=== PATIENT | female | born 1970 | race Caucasian/White ===

== ENCOUNTER 2024-03-26 16:44 | Outpatient (CLI) | payer OTHER, SELFPAY ==
--- NOTE | ~2024-03-26 | XR_ITS ---
EXAMINATION: XR chest 2V Exam Date/Time: 03/26/2024 16:52 CDT HISTORY: SOB X 2 MOS. PROGESSIVELY WORSENING Comparison: None. RESULT: Lines, tubes, and devices: None. Lungs and pleura: Clear. Cardiomediastinal silhouette: Unremarkable. Other: No acute osseous or upper abdominal finding. IMPRESSION: No acute cardiopulmonary process. Reviewed, dictated and finalized at location K.
== END 2024-03-26 16:45 | disposition home or self-care (01) ==
PROVIDERS: PCP Nurse Practitioner Adult Health; Visit Provider Nurse Practitioner Adult Health
DX: R06.02 Shortness of breath (principal)
CPT/HCPCS: 71046

== ENCOUNTER 2024-12-03 00:32 | Day surgery (SDC) | payer OTHER, SELFPAY ==
[2024-09-02 15:48] VITALS: BMI 51.2
--- NOTE | 2024-09-08 14:06 | SUR.PREOP ---
Called pt to cancel her procedure on 09/10 due to provider availability. Pt rescheduled to 12/03 at 1330.
--- NOTE | 2024-11-28 08:31 | PC.NURSE ---
several attempts made to contact pt regarding upcoming colonoscopy,voicemails left, called and spoke with pts son and he said he will contact pt and give message to call.
[2024-12-02 08:59] VITALS: BMI 48.6
--- OUTSIDE RECORDS SUMMARY | 2024-12-03 00:35 | XMS_ITS | Clinical Summary ---
Author Organization [facility] [employer] Address [address] [employer] [address] [address] Care Team Providers Care Ethylbenzene Converter Helper Name Role Phone Julieth Randall MD Primary Care Provider [phone] Allergies No known active allergies Medications cyanocobalamin (Vitamin B-12) 1,000 mcg TabletIndications :Vitamin B 12 deficiency Take 1 Tablet (1,000 mcg) by mouth daily. 1 Tablet 3 Active cholecalciferol (Vitamin D3) 25 mcg (1,000 unit) Tablet, ChewableIndicatio ns:Vitamin D deficiency Take 2 Tablets (2,000 Units) by mouth daily. 1 Tablet 3 Active oxyBUTYnin (DITROPAN XL) 10 mg Extended Release 24 hour tablet Take 1 Tablet by mouth daily. 4 Active norethindrone acetate (AYGESTIN) 5 mg Tablet Take 1 Tablet by mouth daily. 4 Active lisinopriL (PRINIVIL) 5 mg tabletIndications :Edema of both legs,Benign hypertension Take 1 Tablet (5 mg) by mouth daily. 90 Tablet 2 4 Active Active Problems Problem Noted Date Diagnosed Date LVH (left ventricular hypertrophy) 04/22/2024 Overview (04/22/2024): On Echo 04/2024. Mild TR , mild LVH Mixed hyperlipidemia 04/18/2024 Prediabetes 04/08/2024 Benign hypertension 03/19/2024 Urinary incontinence 03/19/2024 Edema of both legs 03/19/2024 Shortness of breath 03/19/2024 Vitamin D deficiency 06/15/2023 Vitamin B 12 deficiency 06/15/2023 Morbid obesity with body mass index of 40.0-49.9 06/15/2023 Resolved Problems Problem Noted Date Diagnosed Date Resolved Date Anemia 06/13/2023 06/15/2023 Encounters Date Type Department Care Team Description 11/20/2024 External Device Data [facility] ABSTRACTION Provider, Abstract 11/12/2024 External Device Data [facility] ABSTRACTION Provider, Abstract 11/12/2024 External Device Data [facility] ABSTRACTION Provider, Abstract 11/09/2024 External Device Data [facility] ABSTRACTION Provider, Abstract 11/08/2024 External Device Data [facility] ABSTRACTION Provider, Abstract 11/05/2024 External Device Data [facility] ABSTRACTION Provider, Abstract 10/22/2024 External Device Data [facility] ABSTRACTION Provider, Abstract 09/25/2024 External Device Data [facility] ABSTRACTION Provider, Abstract 09/25/2024 External Device Data [facility] ABSTRACTION Provider, Abstract 09/10/2024 External Device Data [facility] ABSTRACTION Provider, Abstract from Last 3 Months Immunizations Immunization Administration Dates Next Due (ADACEL/BOOSTRIX)(10 YR UP) TDAP VACCINE, 0.5ML, IM 06/13/2023 INFLUENZA VACCINE QUADRIVALENT 3 YR UP PF IM INFLUENZA VACCINE QUADRIVALENT 6 MOS UP PF IM INFLUENZA VACCINE TRIVALENT SPLIT VIRUS, (6 MOS UP), 0.5ML (PF), IM 06/12/2024 Family History Medical History Relation Name Comments Cancer Father Davi Wagner Very active wit h screening, skin was 1st cancer, false positive on kidney, prostate was next, rib, then leg, from infections after thigh bone replacement surgery 10/15/2018 Skin Cancer Father Davi Wagner 1st cancer on t op of head, life long smoker since 11yrs. 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 late 1970s early Depression Mother Celsa Wagner not diagnosed, commited suicide 06/28/1977 Heart Disease Paternal Grandfather Davi Wagner Not 100% positive on this, going on a comment when I was a child Depression Paternal Grandmother Estelita Wagner Not diagnosed, commited suicide at the age of 22 while 11/29/1939 Other Sister Kathy Wagner [place] Had lump in breast in 1986, was benign and appeared after massive amounts of bug spray was sprayed in her bedroom to combat ants No Known Problems Son Relation Name Status Comments Father Davi Wagner Maternal Grandfather Wei Arango Maternal Grandmother Lesly Arango Mother Celsa Wagner Paternal Grandfather Davi Wagner Paternal Grandmother Estelita Wagner Sister Kathy Wagner [place] Alive Son Alive Social History Tobacco Use Types Packs/Day Years Used Date Smoking Tobacco: Former Cigarettes 0 Tobacco Cessation:Counseling Given: Not Answered Comments:I smoked off and on for a few years until 1991 and smoked for about 6 months in 2001 Alcohol Use Standard Drinks/Week Comments Yes 0 (1 standard drink = 0.6 oz pur e alcohol) Only occasionally or rarely Comments No Sex and Gender Information Value Date Recorded Sex Assigned at Female 06/06/2023 1:11 PM CDT Legal Sex Female 10:48 AM CDT Gender Identity Female 06/06/2023 1:11 PM CDT Sexual Orientation Straight 06/06/2023 1: 11 PM CDT Last Filed Vital Signs Vital Sign Reading Time Taken Comments Blood Pressure 142/82 06/18/2024 2:36 PM CDT Pulse 90 06/18/2024 2:36 PM CDT Temperature 36.5 C (97.7 F) 06/18/2024 2:36 PM CDT Respiratory Rate 16 06/18/2024 2:36 PM CDT Oxygen Saturation 97% 06/18/2024 2:36 PM CDT Inhaled Oxygen Concentration - - Weight 148.8 kg (328 lb) 06/18/2024 2:36 PM CDT Height 170.2 cm (5' 7 ) 06/18/2024 2:36 PM CDT Body Mass Index 51.37 06/18/2024 2:36 PM CDT Plan of Treatment Upcoming Encounters Date Type Department Care Team (Late st Contact Info) Description 12/17/2024 8:30 AM CDT Office Visit [facility] [place] [address] [place] [address] Xiomara Galvan, ANP [address] [place] [address] Health Maintenance Due Date Last Done Comments HEPATITIS B VACCINES (1 of 3 - 19+ 3-dose series) 1988 HPV/Cotest (21-29) 1990 HPV/Cotest (30-65) 1999 BREAST CANCER SCREENING 2009 COLORECTAL SCREENING 2014 Colorectal Cancer Screening 2014 FIT-DNA Q 3 years 2014 FIT/FOBT Q 1 year 2014 Flex Sig/CT Colonography Q 5 years 2014 ZOSTER VACCINE (1 of 2) 2019 Preventative Visit- Commercial 09/04/2024 04/06/2024 Pre-Diabetes and Diabetes Screening 04/04/2027 04/04/2024, 03/19/2024, 06/14/2023 CERVICAL CANCER SCREENING 04/08/2027 PAP SMEAR 04/08/2027 04/08/2024 DTAP/TDAP/TD VACCINES (2 - T d or Tdap) 06/13/2033 06/13/2023 INFLUENZA VACCINE Completed 06/12/2024, 06/09/2023, 06/17/2022 PNEUMOCOCCAL VACCINE 0-49 YEARS Aged Out No longer eligible b ased on patient's age to complete this topic Procedures Procedure Name Priority Date/Time Associated Diagnosis Comments HEMOGLOBIN A1C Routine 04/04/2024 3:33 PM CDT Elevated glucose level from Last 3 Months or Most Recently Relevant to Health Maintenance Results * (ABNORMAL) HEMOGLOBIN A1C (04/04/2024 3:33 PM CDT) HEMOGLOBIN A1C 6.0(H) <5.7 % of total Hgb [facility] Comment: For someone without known diabetes, a hemoglobin A1c value between 5.7% and 6.4% is consistent with prediabetes and should be confirmed with a follow-up test. For someone with known diabetes, a value <7% indicates that their diabetes is well controlled. A1c targets should be individualized based on duration of diabetes, age, comorbid conditions, and other considerations. This assay result is consistent with an increased risk of diabetes. Currently, no consensus exists regarding use of hemoglobin A1c for diagnosis of diabetes for children. ESTIMATED AVERAGE GLUCOSE (MG/DL) 126 mg/dL [facility]eli Barajas ESTIMATED AVERAGE GLUCOSE (MMOL/L) 7.0 mmol/L [facility] k[facility] Barajas Comment: This test was performed on the Yadira callum c503 platform. Effective 11/20/23, a change in test platforms from the [employer] to the Yadira callum c503 may have shifted HbA1c results compared to historical results. Based on laboratory validation testing conducted at [email or web address], the Yadira platform relative to the Thomas platform had an average increase in HbA1c value of < or = 0.3%. This difference is within accepted variability established by the National Glycohemoglobin Standardization Program. Note that not all individuals will have had a shift in their results and direct comparisons between historical and current results for testing conducted on different platforms is not recommended. INSURANCE VERIFIED WOULD NOT SCAN FASTING:NO FASTING: NO Test Performed at: [email or web address] [place] [address] [address] [phone] [facility] Landis Blood 04/04/2024 3:33 PM CDT 04/04/2024 3:34 PM CDT us Xiomara Galvan [facility] CHEMISTRY ORDERABLES Final R esult [facility] [phone] [facility] [place] [address] [address] [phone] from Last 3 Months or Most Recently Relevant to Health Maintenance Insurance [employer] * Guarantor: [employer]) Account Type Relation to Patient Date of Phone Billing Address Corporate 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
--- OUTSIDE RECORDS SUMMARY | 2024-12-03 00:36 | XMS_ITS | Data Portability ---
Author Organization [facility] Address [address] [place] [address] [place] [address] Care Team Providers Care Operater Name Role Phone ALYSSA CARIAS Primary Care Provider Assessment No assessment recorded. Plan of Treatment Reminders Order Date Submit Date Provider Last Modified By Organization Details Last Modified Time Details Appointments None recorded. Lab test, urine 2023 024 [email or web address] [facility], [address], [place], [address], 16:40:56 Referral None recorded. Procedures None recorded. Surgeries dilation and curettage with hysteroscop y (SURG) 2023 024 [facility], [facility] [address], [place], [address], 17:04:07 Imaging US, pelvis 2023 024 [email or web address] [place], [address], [address], [place], [address], 19:45:10 US, transvagina l 2023 024 [email or web address] [place], [address], [place], [address], 19:45:10 US, pelvis 2023 024 oliver [facility], [address], [place], [address], 4 22:38:06 US, transvagina l 2023 024 [email or web address] [place], [address], [address], [place], [address], 4 22:38:06 Medication Orders norethindro ne acetate 5 mg tablet 2023 024 [facility] [id number] In [facility], [address], [place], [address], 4 13:11:37 Patient TargetsNo targets recorded. Patient InstructionsNo instructions recorded. Reason for Referral None Reported. Results Created Date Observation Date Name Description Value Unit Range Abnormal Flag Note LastModifiedBy Organization Detail LastModifiedTime 04/08/20 24 04/08/2024 IMAGE GUIDE D PAP AND HPV REGAR DLESS image guided Pap, HPV regardless of Pap result SEE RESULT S BELOW CASE REPOR T: Cytol ogy Gynec ologi daksha Repor t Case: [id number] Autho francisca riley Provi romario: Non-S taff, Physi ana maria Luis cted: 04/08 0913 Order ing Locat ion: [place] Path[facility] Recei otilia: 04/09 0623 First Scree n: Michelle Dutton Speci men: Scree marci Pap - Image d, Cervi x STATE MENT OF ADEQU ACY: Satis facto ry for evalu ation Trans forma tion zone compo nent prese nt ----- ----- ----- ----- ----- ----- ----- ----- ----- ----- ----- ----- ----- ----- ----- ----- ----- ---- FINAL DIAGN OSIS: Negat yuridia for Intra epith gunner cervantes or Kimberli finch (NIL) . Elect disha murphy by Michelle Dutton on 2023 at 12:45 PM ----- ----- ----- ----- ----- ----- ----- ----- ----- ----- ----- ----- ----- ----- ----- ----- ----- ---- HPV RESUL TS: HPV mRNA E6/E7 : No HPV mRNA Detec lazaro NOTE: This high risk HPV mRNA assay detec ts fourt een high- risk HPV types (16, 18, 31, 33, 35, 39, 45, 51, 52, 56, 58, 59, 66, 68) witho ut diffe renti ation . COMME NT: This speci men was revie wed by a Cytot echno logis t and/o r Patho logis t (as indic ated in this repor t) after evalu ation using the Thinp rep Imagi ng Syste m. CLINI DAKSHA INFOR MATIO N: Menst rual Statu s: LMP (if appli cable ): Clini daksha Histo ry/Pr eviou s Pap: Type of Neopl katerina (if appli cable ): Signi fican t Clini daksha Findi ngs: Other Histo ry: Hormo prince (if appli cable ): PAP EDUCA ANKIT L NOTE: The Pap Test is a scree marci test with an inher ent false negat yuridia rate. Liqui d-bas ed sampl ing may decre ase, but will not elimi roberta, false negat yuridia resul ts. A negat yuridia resul t does not precl ude the prese nce and/o r devel opmen t of disea se, since the prese nce of abnor mal cells in the sampl e depen ds on the locat ion of the lesio n and sampl ing techn ique. Jostin nued regul ar scree marci is the best metho d of cance r preve ntion . If repor lazaro cytol ogic findi ng do not corre late with physi daksha and/o r histo rical findi ngs, furth er inves tigat ion is recom kristan d, as nakia ho. Not Available [facility] (Lab) [address], [place], [address], 04/13/2024 13:47:53 06/19/20 24 2024 pregn alicia test, urine HCG negati ve Not Available [facility] [address], [place], [address], 2024 16:39:00 05/13/20 24 05/13/2024 US, pelvi s No observ ation record ed. [email or web address] [facility] [address], [place], [address], 05/13/2024 18:37:28 05/13/20 24 05/13/2024 US, trans vagin al No observ ation record ed. [email or web address] [facility] [address], [place], [address], 05/13/2024 18:37:38 05/13/20 24 05/13/2024 US, pelvi s No observ ation record ed. [email or web address] [address] [facility], [place], [address], 05/15/2024 10:11:52 07/11/20 24 07/11/2024 US, pelvi s No observ ation record ed. [email or web address] [facility] [address], [place], [address], 07/11/2024 18:37:49 07/11/20 24 07/11/2024 US, trans vagin al No observ ation record ed. [email or web address] [facility] [address], [place], [address], 07/11/2024 18:37:58 07/11/20 24 07/11/2024 US, pelvi s No observ ation record ed. [email or web address] [address], [place], [address], 07/11/2024 21:30:10 Result Notes None recorded. Problems Name Problem SNOMED Code Status Onset Date Resolution Date Notes Provider Name and Address Organization Details Recorded Time Hypertensive disorder 13147292 Active 2023 Lotus valdez, [facility] 09:32:55 Problem Notes None recorded. Procedures Surgical History Date Name Laterality Status Provider Name and Address Organization Details Recorded Time endometrial biopsy completed Jessa Deal [facility] 2024 16:38:38 Date of Last Pap Smear completed Nicolasa Dennis [facility] 06/01/2024 12:40:09 Imaging Results Imaging Date Name Status LastModified by Organization Details LastModified Time 05/13/2024 US, pelvis completed [email or web address] [facility] [address], [place], [address], 05/13/2024 18:37:28 05/13/2024 US, transvaginal completed [email or web address] [place] [facility] [address], [place], [address], 05/13/2024 18:37:38 05/13/2024 US, pelvis completed [email or web address] [address], [place], [address], 05/15/2024 10:11:52 07/11/2024 US, pelvis completed [email or web address] [facility] [address], [place], [address], 07/11/2024 18:37:49 07/11/2024 US, transvaginal completed [email or web address] [place] [facility] [address], [place], [address], 07/11/2024 18:37:58 07/11/2024 US, pelvis completed [email or web address] [address], [place], [address], 07/11/2024 21:30:10 Procedure Notes None recorded. Medical Equipment None Reported. Allergies No known drug allergies Medications Name Sig Start Date Stop Date Status Note LastModified by Organization Details LastModified Time oxybutynin chloride ER 10 mg tablet,exten ded release 24 hr TAKE 1 TABLET BY MOUTH EVERY DAY active Not Available Not Available No t Available lisinopril 5 mg tablet TAKE 1 TABLET BY MOUTH EVERY DAY active Not Available Not Available No t Available norethindron e acetate 5 mg tablet TAKE 1 TABLET BY MOUTH EVERY DAY 2024 active Not Available Not Available Not Avai lable ergocalcifer ol (vitamin D2) 1,250 mcg (50,000 unit) capsule TAKE 1 CAPSULE BY MOUTH EVERY 7 DAYS FOR 12 DOSES 04/06 completed Not Available Not Available Not Available Vitals Date Recorded Body height Body mass index (BMI) Body weight Systolic blood pressure Diastolic blood pressure Provider Name and Address Organization Details Last Updated DateTime 05/04/2024 166.37 cm 54.9 kg/m2 013044.1 6 g 134 mm[Hg] 84 mm[Hg] Paola Osorio [facility] 4 10:35:38 Date Recorded Body height Body mass index (BMI) Body weight Systolic blood pressure Diastolic blood pressure Provider Name and Address Organization Details Last Updated DateTime 06/01/2024 166.37 cm 54.6 kg/m2 700177.2 6 g 116 mm[Hg] 77 mm[Hg] Nicolasa Dennis [facility] 4 12:39:48 Date Recorded Body height Body mass index (BMI) Body weight Systolic blood pressure Diastolic blood pressure Provider Name and Address Organization Details Last Updated DateTime 2024 166.37 cm 53.8 kg/m2 772679.3 g 136 mm[Hg] 72 mm[Hg] Jessa Deal [facility] 4 16:37:52 Social History Question Answer Notes LastModified by Organizat ion Details LastModified Time Tobacco Smoking Status Former Smoker Lotus Ji [facility], [facility] 04/06/2024 11:12:21 What Is Your Level Of Alcohol Consumption? Occasional [email or web address] Information not available 04/06/2024 How Many Years Have You Consumed Alcohol? 33 [email or web address] Information not available 04/06/2024 Are You Blind Or Do You Have Difficulty Seeing? No [email or web address] Information not available 04/06/2024 What Is Your Level Of Caffeine Consumption? Moderate [email or web address] Information not available 04/06/2024 How Much Tobacco Do You Chew? None [email or web address] Information not available 04/06/2024 In The 14 Days Before Symptom Onset, Have You Had Close Contact With A Laboratory-confir med COVID-19 While That Case Was Ill? No [email or web address] Information not available 04/06/2024 In The 14 Days Before Symptom Onset, Have You Had Close Contact With A Person Who Is Under Investigation For COVID-19 While That Person Was Ill? No [email or web address] Information not available 04/06/2024 Have You Been To An Area Known To Be High Risk For COVID-19? No [email or web address] Information not available 04/06/2024 Are You Deaf Or Do You Have Serious Difficulty Hearing? No [email or web address] Information not available 04/06/2024 What Type Of Diet Are You Following? REGULAR [email or web address] Information not available 04/06/2024 What Is The Highest Grade Or Level Of School You Have Completed Or The Highest Degree You Have Received? 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 No [email or web address] Information not available 04/06/2024 Have You Ever Been Counseled For Unhealthy Alcohol Use? No [email or web address] Information not available 04/06/2024 Do You Use Protection During Sex? Usually [email or web address] Information not available 04/06/2024 Do You Use Your Seat Belt Or Car Seat Routinely? Yes Information not available 04/06/2024 Do You Have Smoke And Carbon Monoxide Detectors In Your Home? Yes [email or web address] Information not available 04/06/2024 At What Age Did You Start Smoking Tobacco? 18 [email or web address] Information not available 04/06/2024 How Much Tobacco Do You Smoke? No [email or web address] Information not available 04/06/2024 Do You Feel Stressed (tense, Restless, Nervous, Or Anxious, Or Unable To Sleep At Night)? [id number] [email or web address] Information not available 04/06/2024 Do You Use Any Illicit Or Recreational Drugs? No [email or web address] Information not available 04/06/2024 Do You Use Sunscreen Routinely? Yes [email or web address] Information not available 04/06/2024 Has Tobacco Cessation Counseling Been Provided? Yes [email or web address] Information not available 04/06/2024 On What Date Was Tobacco Cessation Counseling Provided? 04/06/2024 [email or web address] Information not available 04/06/2024 How Many Years Have You Smoked Tobacco? 3 Information not available 04/06/2024 Have You Used IV Drugs? No [email or web address] Information not available 04/06/2024 Do You Or Have You Ever Used Any Other Forms Of Tobacco Or Nicotine? No [email or web address] Information not available 04/06/2024 Sex: Unknown Functional Status Question Answer Note LastModified by Organizat ion Details LastModified Time Do you have difficulty walking or climbing stairs? No [email or web address] Information not available 04/06/2024 Are you able to walk? [email or web address] Information not available 04/06/2024 Are you able to care for yourself? Yes [email or web address] Information not available 04/06/2024 Do you have difficulty dressing or bathing? No [email or web address] Information not available 04/06/2024 What is your exercise level? None [email or web address] Information not available 04/06/2024 Mental Status None recorded. Family History Relationship Description Onset Age of this Age Resolved Age Notes LastModified by Organization Details LastModified Time Maternal Aunt Malignant tumor of breast Not available 04/06 11:10:06 Maternal Grandmother Malignant tumor of breast [email or web address] Not available 04/06 11:10:06 Mother Suicide [email or web address] Not available 07/11/2024 17:13:14 Medical History Condition Response Allergies (Food, seasonal, environmental ) N Other N Breast Cancer N Drug/Latex Allergies/Reactions N Blood Transfusion N Lung Disease N Dermatologic Disorders N Defects or Inherited Disease N Breast Problem N Gestational Diabetes N Hematologic disorders N Anesthesia Complications N History of STI N Deep Vein Thrombosis N Polycystic ovary syndrome N Anxiety Disorder N Autoimmune disease N Arthritis N Polyps N Infertility N History of abnormal pap N Acid Reflux (GERD) N Cancer N Varicosities N Stroke N Neurologic/Epilepsy N Endometriosis N High Cholesterol N Fibromyalgia N Headaches N Kidney Disease N Heart Problems N Kidney or Bladder Problems N Thyroid Problems N GI Problems N Eating Disorder N Anemia N Art (IVF or FET) N Psychiatric Illness N Ovarian Cancer N Diabetes N Pulmonary (TB, Asthma) N Hepatitis/Liver Disease N No Past Medical History Y Eczema N Urinary Tract Infection N Abuse/Domestic Violence N Asthma N Trauma/Violence N Depression/ depression N Heart Disease N Pre-Eclampsia N Hypertension Y Osteoporosis N Thrombophilias N Gynecological History Statement/Question Response Date of Last Mammogram Flow Light Date of LMP 04/18/2024 N Was last menstrual period normal N STIs/STDs N Date of Last Colonoscopy Menopause Desired Control Method None On BCP's at Conception? N HPV Vaccine N Duration of Flow (days) 7 Current Control Method Menopause Age at First Child 22 Frequency of Cycle (Q days) 24 Sexually Active? N Menses Monthly N Date of DEXA bone scan Age of first menstrual cycle 15 Date of Last Pap Smear 04/08/2024 Sexual Problems? N LMP Approximate N Obstetrics History GPAL:G 1 P 1 0 0 1 Type Value Full Term 1 Living 1 Total 1 Past Encounters Encounter ID Performer Location Encounter Start Date Encounter Closed Date Diagnosis/Indication Diagnosis SNOMED-CT Code Diagnosis ICD10 Code Diagnosis Note [id number] Rodriguez Lacey MD [facility] [address] [address] 04/06/2024 10:53:20 04/06/2024 11:36:54 Urge incontinence of urine 05444850 N39.41 Gynecologi c examination 86587172 Z01.419 Annual gynecologi daksha exam performed. Patient will come back in a year unless there are new symptoms. Suggest Calcium with Vitamin D if not eating in diet. Patient advised to get annual flu shot. Recommend yearly physicals and preform monthly breast exams. Genetic testing is available for patients with family history of cancer. Engage in safe sexual practices, use condoms. Encouraged to have daily exercise. Avoid tobacco and illicit drugs, moderation of alcohol. If BMI greater than 25 dietary consult advised. If you have any questions please call or email. mammogram- ordered colon cancer screening - scheduled Pap smear- today laboratory evaluation - done [id number] Rodriguez Lacey MD [facility] [address],[facility] [place] [address] 05/04/2024 10:28:27 05/07/2024 15:09:00 Urgent desire to urinate 59633016 R39.15 this patient is a 53-year-ol d female presents for follow-up on oxybutynin and urinary urgency. She is doing much better. She has fewer night time voiding episodes. Fear urgency episodes. She would like to continue the medication at the current dose. She has adequate number refilled for a year. [facility] [address],[place] [address] 05/13/2024 17:28:11 05/14/2024 03:36:07 Postmenopausal bleeding 43349948 N95.0 [id number] Rodriguez Lacey MD [place] [address],[place] [address] 06/01/2024 12:27:02 06/01/2024 13:20:22 Postmenopausal bleeding 35171825 N95.0 53-year-ol d female presents for follow-up for postmenopa usal bleeding. She had an ultrasound . There is a thickened endometriu m for a menopausal woman. There is also a 3 cm simple ovarian cyst. We agreed to follow up on the ovarian cyst. We talked about thickened endometriu m. We talked about postmenopa usal bleeding. Talked about treatment. We agreed to daily norethindr one for the current irregular bleeding. She will do that for approximat ravinder 6 months. We discussed endometria l sampling. We discussed endometria l biopsy versus hysterosco py D&C. I spent over 30 minutes on the patient's care in total. We agreed to move forward with office endometria l biopsy. She is given instructio ns and the procedure was described in detail. On the norethindr one. She was given instructio ns, precaution s, risks, benefits, and alternativ es. Cyst of ovary 83360320 N 83.209 [id number] Rodriguez Lacey MD [facility] [address] [address] 2024 16:31:20 2024 17:25:51 Screening procedure 88476995 Z13.9 Abnormal u terine bleeding 1017099928 9100 N93.9 54-year-ol d female presents for aebnormal uterine bleeding and an endometria l biopsy. Endometria l biopsy was attempted. The internal os could not be passed with the Pipelle or a os Finder. We agreed to hysterosco py D and C in the hospital. The patient understand s the procedure. The procedure was described to the patient in great detail. the patient also understand s the risks. The risks were also explained in detail. She understand s that injuries May occur during surgery. She understand s these injuries can result in hospitaliz ation, more surgery, and severe illness. She understand s there is risk of hemorrhage and infection. [id number] Sharon Bergeron [facility] [address] [address] 07/11/2024 17:12:27 07/12/2024 04:37:52 Cyst of right ovary 7775035131 3745155 N83.291 Health Concerns Section Related Observation LastModified by Organization Detai ls LastModified Time None Recorded Concern Status LastModified by Organization Details LastModified Time None Recorded Advance Directives Directive None Recorded Payers Encounter Date Sequence Insurance Name Policy Number Policy Hooper Covered Member ID Hooper Member ID Guarantor Name 05/04/2024 1 [employer] (PPO) [id number] Yessi Peters [id number] Yessi Peters 05/13/2024 1 [employer]PPO) [id number] Yessi Peters [id number] Yessi Peters 06/01/2024 1 [employer] (PPO) [id number] Yessi Peters [id number] Yessi Peters 2024 1 [employer] (PPO) [id number] Yessi Peters [id number] Yessi Peters 07/11/2024 1 [employer] (PPO) [id number] Yessi Peters [id number] Yessi Peters Notes Date Note Type Note Provider Name and Address Organization Details Recorded Time 05/04/2024 text/html this patient is a 53-year-old female presents for follow-up on oxybutynin and urinary urgency. She is doing much better. She has fewer night time voiding episodes. Fear urgency episodes. She would like to continue the medication at the current dose. She has adequate number refilled for a year. Rodriguez Lacey MD [address], [place], [address], [facility] 05/04/2024 17:39:37 06/01/2024 text/html 53-year-old mark huynh presents for follow-up for postmenopausal bleeding. She had an ultrasound. There is a thickened endometrium for a menopausal woman. There is also a 3 cm simple ovarian cyst. We agreed to follow up on the ovarian cyst. We talked about thickened endometrium. We talked about postmenopausal bleeding. Talked about treatment. We agreed to daily norethindrone for the current irregular bleeding. She will do that for approximately 6 months. We discussed endometrial sampling. We discussed endometrial biopsy versus hysteroscopy D&C. I spent over 30 minutes on the patient's care in total. We agreed to move forward with office endometrial biopsy. She is given instructions and the procedure was described in detail. On the norethindrone. She was given instructions, precautions, risks, benefits, and alternatives. Rodriguez Lacey MD [address], [place], [address], [facility] 06/01/2024 13:17:07 2024 text/html 54-year-old mark huynh presents for aebnormal uterine bleeding and an endometrial biopsy. Endometrial biopsy was attempted. The internal os could not be passed with the Pipelle or a os Finder. We agreed to hysteroscopy D and C in the hospital. The patient understands the procedure. The procedure was described to the patient in great detail. the patient also understands the risks. The risks were also explained in detail. She understands that injuries May occur during surgery. She understands these injuries can result in hospitalization, more surgery, and severe illness. She understands there is risk of hemorrhage and infection. Rodriguez Lacey MD [address], [place], [address], [facility] 2024 17:25:16 OBGyn Episode Ob Episode Information Episode Created Date Number of Fetuses Patient Bloodtype Patient rh Status Prepregnancy Weight lbs Domestic Partner Domestic Partner Phone Father Name Winder Helper Status 04/06/20 24 1 CLOSED Fetus Data First Name Last Name Admitted to NICU Weight (g) Sex Living Outcome Pediatric Complications Fetus ID Race Codes Race Delivery Type 4195.72 6 M Full Term [id number] Vaginal Delivery Juan Jose Calculation Initial Juan Jose Date Initial Exam Date Initial Exam Provider Initial Ultrasound Date Last Menstrual Period Date Ultra Sound Weeks Gestation 0 Eighteen To Twenty Week Juan Jose Update Ultra Sound Date Fundal Height At Umbil Quickening Date Ultra Sound Latest Weeks Gestation Final Juan Jose Confirmed By Final Juan Jose Confirmed Date Final Juan Jose Date Ultra Sound Latest Days Gestation 0 0 Menstrual History Last Menstrual Date Menses Monthly On Bcp Conception Prior Menses Frequency Hcg Plus Date Menarche Onset Age Delivery Information Delivery Date Delivery Type Labor Anesthesia Weeks Gestation Incision Type Labor Labor Length Hrs Delivered By Post Complications Tubal Sterilization Discharge Date Comments 3 Discharge Information Feeding Method Contraceptive Method Maternal HG B and HCT Levels
[2024-12-03 12:31] VITALS: BP 179/80; PULSE 95; RESP 16; TEMP 36.4; O2SAT 94
--- NOTE | 2024-12-03 12:35 | WPDANESEPPF ---
Anes - Initial Pre Proc Eval Procedure: Operation Date: 12/03/24 13:30 Proposed Procedures p Screening Colonoscopy - Avni Coffey MD Date/Time: 12/03/24 12:35 Surgeon: Avni Coffey MD Pre Op Diagnosis: screening malignant neoplasm colon Patient Data Age: 54 Gender: F Height: 1.7 m Weight: 151.3 kg Last Vital Signs Temp 97.6 F 12/03/24 12:31 Pulse 95 12/03/24 12:31 Resp 16 12/03/24 12:31 BP 179/80 H 12/03/24 12:31 Pulse Ox 94 12/03/24 12:31 O2 Del Method Room Air 12/03/24 12:31 Allergies Allergy/AdvReac Type Severity Reaction Status Date / Time No Known Allergies Allergy Verified 12/03/24 12:30 Home Medications ?Medication ?Instructions ?Recorded ?Confirmed ?Type cholecalciferol (vitamin D3) 25 50 mcg PO DAILY 09/02/24 12/03/24 History mcg (1,000 unit) capsule (Vitamin D3) cyanocobalamin (vitamin B-12) 1,000 mcg PO DAILY 09/02/24 12/03/24 History 1,000 mcg capsule lisinopril 5 mg tablet 5 mg PO DAILY 09/02/24 12/03/24 History norethindrone acetate 5 mg tablet 5 mg PO DAILY 09/02/24 12/03/24 History oxybutynin chloride 10 mg 10 mg PO DAILY 09/02/24 12/03/24 History tablet,extended release 24 hr Patient hx anesthesia problems: none Family hx anesthesia problems: none Results Review: All pre-operative results and documents have been reviewed as part of the pre-operative evaluation. [facility] Social History Social History Smoking packs per day: 1 Smoking cigarettes per day: 20.0 Smoking status: Former smoker Tobacco type: cigarettes Additional smoking assessment comments: 2000 Alcohol intake: current Alcohol use details: 1 Substance use: never Substance use type: does not use Living arrangements: with family Spiritual care concerns: No Anes - Eval Final PreProcedure Day of Procedure 12/03/24 12:35 Patient weight: super morbidly obese Lungs: normal air movement Airway: Mallampati scale class III Neurological: alert and oriented Last oral intake: >/= 8 hours ASA classification: IV Emergent: no Anesthetic plan: proceed Anesthesia type and monitoring: general GIVS and standard monitoring Results Review: All pre-operative results and documents have been reviewed as part of the pre-operative evaluation. Long time ex smoker, HTN, borderline DM, suspect ZOE but sleep study pending. BMI 52. Informed Consent: The patient's anesthetic plan and its attendant risks and benefits were discussed with the patient/family/POA. Questions were solicited and answers provided to the satisfaction of the patient/family/POA.
--- NOTE | 2024-12-03 12:46 | PM.HPGS ---
History of Present Illness History of Present Illness Consent: Risks, benefits, and alternatives have been discussed and questions answered. Patient agrees to proceed with procedure. Chief complaint: screening malignant neoplasm colon Narrative: Yessi Peters is a 54 year old female here for first screening colonoscopy Review of Systems Review of Systems: All systems reviewed & are unremarkable except as noted in HPI and below PMFSH Past Medical History Medical History (Updated 12/03/24 @ 12:47 by Avni Coffey MD) Colon cancer screening Social History Social History Smoking packs per day: 1 Smoking cigarettes per day: 20.0 Smoking status: Former smoker Tobacco type: cigarettes Additional smoking assessment comments: 2000 Alcohol intake: current Alcohol use details: 1 Substance use: never Substance use type: does not use Living arrangements: with family Spiritual care concerns: No Meds Home Medications and Allergies Home Medications ?Medication ?Instructions ?Recorded ?Confirmed ?Type cholecalciferol (vitamin D3) 25 50 mcg PO DAILY 09/02/24 12/03/24 History mcg (1,000 unit) capsule (Vitamin D3) cyanocobalamin (vitamin B-12) 1,000 mcg PO DAILY 09/02/24 12/03/24 History 1,000 mcg capsule lisinopril 5 mg tablet 5 mg PO DAILY 09/02/24 12/03/24 History norethindrone acetate 5 mg tablet 5 mg PO DAILY 09/02/24 12/03/24 History oxybutynin chloride 10 mg 10 mg PO DAILY 09/02/24 12/03/24 History tablet,extended release 24 hr Allergies Allergy/AdvReac Type Severity Reaction Status Date / Time No Known Allergies Allergy Verified 12/03/24 12:30 Vital Signs Vital Signs - 24 hr 12/03/24 12:31 Temperature 97.6 F Pulse Rate 95 Respiratory Rate 16 Blood Pressure 179/80 H Pulse Oximetry 94 Oxygen Delivery Room Air Exam Const: General: comfortable and no acute distress Nutritional Appearance: obese HENMT: Face/Nose/Sinus: Normal nares present Eyes: General: appearance normal, both eyes and all related structures Neck: Neck: no JVD Resp: Auscultation: clear to auscultation bilaterally Cardio: Rate: regular rate Rhythm: regular rhythm GI: Inspection: non-distended GI Palp: Yes Soft to palpation Skin: General skin exam: normal color Neuro: Speech: normal speech Extrem: General: normal to inspection Psych: Mental Status: mental status grossly normal Assessment and Plan Assessment and plan (1) Colon cancer screening: Code(s): Z12.11 - Encounter for screening for malignant neoplasm of colon Status: Acute Assessment and Plan: colonoscopy
[2024-12-03] MEDS: LACTATED RINGERS 1,000 ML 150 ML IV CONT (12:49)
[2024-12-03 13:14] VITALS: BP 97/42; PULSE 85; RESP 26; O2SAT 93
[2024-12-03 13:24] VITALS: BP 96/58; PULSE 90; RESP 23; O2SAT 95
[2024-12-03 13:34] VITALS: BP 128/63; PULSE 87; RESP 28; O2SAT 100
== END 2024-12-03 13:41 | disposition home or self-care (01) ==
PROVIDERS: PCP Nurse Practitioner Adult Health; Referring Provider Obstetrics & Gynecology; Visit Provider Internal Medicine Gastroenterology
PROC: 0DJD8ZZ Inspection of Lower Intestinal Tract, Via Natural or Artificial Opening Endoscopic (ICD-10-PCS; CPT 45378; principal; 2024-12-03 13:30)
DX: Z12.11 Encounter for screening for malignant neoplasm of colon (principal); D12.2 Benign neoplasm of ascending colon; K63.5 Polyp of colon; K64.8 Other hemorrhoids; I10 Essential (primary) hypertension; R73.03 Prediabetes; E66.01 Morbid (severe) obesity due to excess calories; Z68.43 Body mass index [BMI] 50.0-59.9, adult; Z87.891 Personal history of nicotine dependence
CPT/HCPCS: 45385; 88305; J2003; J2704; J7120